=== PATIENT | female | born 1955 | race Caucasian/White ===

== ENCOUNTER 2024-12-28 07:18 | Observation (INO) ==
[2024-12-28] MEDS: LACTATED RINGER'S 1,000 ML IV ONE (07:33)
[2024-12-28] MEDS: MoRPHine SULFATE 4 MG/ML 1 ML CARP\\VIAL IV STA (07:34)
[2024-12-28] MEDS: ONDANSETRON INJ 2 MG/ML 2 ML VIAL IV STA (07:35)
--- NOTE | 2024-12-28 07:37 | Emergency Department Note ---
ED Provider Note NAME: SARKIS JEFFRIES AGE: 69 SEX: F : 1955 ARRIVES VIA: Ambulance INFORMANT: Patient, EMS ED PROVIDER(S): Brandon Rollins DO CHIEF COMPLAINT: fall HPI: This is a []-year-old []male with the PMHx of[] presenting to [facility] for further evaluation of []. Patient is accompanied by[] who provide additional history. []. Patient states overnight she had 1 episode of vomiting. She reports generalized abdominal pain as well as diarrhea. Patient states that she had a syncopal episode when getting up this morning. She fell and landed onto her chest and abdomen. She did not strike her head. She did lose consciousness. Patient is reporting chest pain as well as upper abdominal pain. They deny fever or chills. No cough or congestion. Denies chest pain or palpitations. No shortness of breath. They deny abdominal pain, nausea and vomiting. No urinary complaints. No recent changes in bowel movements. Patient denies recent changes in medications or OTC supplements. Patient offers no other complaints, today. ADDITIONAL HISTORY OBTAINED: Per HPI Chronic Medical/Social Conditions Affecting Care: Per HPI PAST MEDICAL HISTORY: See Below PAST SURGICAL HISTORY: See Below FAMILY HISTORY: See Below SOCIAL HISTORY: See Below HOME MEDICATIONS: See Below ALLERGIES: See Below VITALS: See Below PHYSICAL EXAMINATION: Primary Survey Airway: Intact Breathing: Normal, breath sounds equal bilaterally Circulation: Skin warm, distal pulses 2+, capillary refill less than 2 seconds Disability Pupils: Equal and reactive to light, []mm, brisk GCS: 15, E = [/4], V=[/5], M= [/6] Motor Function: Moves all extremities. Sensory: No deficits Secondary Survey GEN: Well developed and well-nourished HENT: Head: [] external signs of trauma. Mouth/Throat: Midface []. [] malocclusion. Eyes: EOMI. Pupils are [] mm, round and reactive bilaterally. Ears: TMs are intact bilaterally. [] hematomas. Nose: [] nasal septal hematoma. [] gross deformity. Neck: C-collar in place. [] midline C-spine tenderness. No step-offs. Cardiovascular: RRR. Pulses present in all 4 extremities. Pulmonary/Chest: [] BS equal bilaterally. [] tenderness or ecchymosis. Abdomen: [] tenderness or ecchymosis. Musculoskeletal: Pelvis: [] instability. Back: [] midline tenderness. No step-offs or deformities. Extremities: [] gross deformities. [] TTP. Skin: [] laceration. [] abrasion. Neuro: [] focal neurological deficits. GCS as above. Psych: Normal mood and affect. MEDICAL DECISION MAKING: Differential diagnoses includes but not limited to [] In summary, this is a [] year old []male who presented with []. Differential as above. Nursing notes and pertinent past medical records reviewed. Vital signs reviewed and the patient is []. History and presentation revealed []. Physical examination revealed []. As a result of my initial evaluation, []. Diagnostics interpreted by me include EKG and cardiac monitoring as listed below: -Cardiac Monitoring: An order was placed for continuous cardiac monitoring. The monitor shows a rate of [] with [] rhythm. -ECG: Sinus tachycardia at a rate of [address] segment changes to suggest STEMI. There are 2 PVCs present on this rhythm strip. Intervals are otherwise within normal limits. Patient completed laboratory studies and imaging. I-STAT chemistries independently interpreted by me reveal no significant electrolyte derangements. Kidney function is appropriate for CT scan. Results independently interpreted by me are []. The patient was managed with []. The patient verbalized understanding of the treatment plan and they are comfortable with discharge home. Ultimately, the decision was made to admit the patient for []. It was recommended to admit this patient at[]. I discussed the case with the hospitalist service via telephone/TigerText and they are agreeable to admit the patient to their services. Based on the above, including the patient's age, coexisting illnesses, labs, imaging, and exam findings the decision to treat as an inpatient. I discussed the patient with the hospitalist team who recommended admission to their services. They received the medications, treatments, interventions indicated above and their condition []. I discussed my findings with the patient and their family and they understand and agree with the treatment plan. All patient / family questions were answered to their satisfaction. Consults/Care Managements Discussions: Per MDM ER treatment provided: See above Procedures:[none] Critical Care: [None] The chart was completed utilizing [employer] Speech voice recognition software. Grammatical errors, random word insertions, pronoun errors, and incomplete sentences are an occasional consequence of this system due to software limitations, ambient noise, and hardware issues. Any formal questions or concerns about the content, text, or information contained within the body of this dictation should be directly addressed to the physician for clarification. Past Med/Surg History Problem List (Updated 12/28/24 @ 09:29 by Lambert Cleary MD) Rib fractures Hydronephrosis, right (Chronic) Hypokalemia Recurrent nephrolithiasis (Chronic) Calcium Oxalate Chronic bilateral low back pain without sciatica Osteoporosis HTN (hypertension) Medical History Sacroiliitis History of supraventricular tachycardia Osteoarthritis Scoliosis Compression fracture of L1 lumbar vertebra (~2020) Hx of motion sickness Surgical History Status post laser lithotripsy of ureteral calculus History of anesthesia reaction Nausea and vomiting after administration of anesthetic agent History of bilateral tubal ligation History of cystoscopy History of lithotripsy History of colonoscopy History of tooth extraction History of cardiac radiofrequency ablation Family History Grandmother (Maternal) Family history of diabetes mellitus Aunt Breast cancer Mother Alzheimer disease Father Myocardial infarction Denies family history of Ovarian cancer Prostate cancer Colorectal cancer Social History Smoking Status: Never smoker Second Hand Exposure: No; Do You Dip or Chew Tobacco: No; Hx Alcohol Use: No Hx Substance Use: No Preferred Language: Armenian Communication Ability: Effective Visual Impairment: No Limitations Desk Maker Required: No Beliefs That Will Affect Care: None marital status: Current Living Situation: Spouse current occupational status: retired Other Information That Helps Us Care for You: No Feels Safe at Home: Yes Safety Concerns: Feels Safe At This Time Childhood Exposure to Second-Hand Smoke: Yes Diet: regular caffeine: Yes Dental Care, Regularly: Yes Physical Activity Frequency: 3-4 Times per Week Seatbelt Use: always Sunscreen Use: Yes (sometimes) Assistive Devices: Glasses Allergies Allergies Allergy/AdvReac Type Severity Reaction Status Date / Time No Known Allergies Allergy Verified 12/28/24 09:07 Home Meds Home Medications Medication Instructions Recorded Confirmed cholecalciferol (vitamin D3) 10 400 unit PO QAM 05/24/18 12/28/24 mcg (400 unit) capsule (Vitamin D3) flaxseed oil 1,000 mg capsule 1,000 mg PO QAM 05/24/18 12/28/24 multivitamin 1 tab PO QAM 05/24/18 12/28/24 pravastatin 20 mg tablet 20 mg PO QAM 12/28/24 12/28/24 triamterene 37.5 1 tab PO QAM 12/28/24 12/28/24 mg-hydrochlorothiazide 25 mg tablet Previous Rx's Medication Instructions Recorded denosumab 60 mg/mL subcutaneous 60 mg subcut ONCE #1 mL 02/10/24 syringe (Prolia) Results & Data (ED) Vital Signs Vital Signs - 24 hr 12/28/24 06:53 12/28/24 07:25 12/28/24 07:28 Temperature 36.7 C Temperature Source Oral Pulse Rate 108 H 110 H Pulse Rate [Apical] Respiratory Rate 18 Respiratory Effort / Characteristics Non-Labored Spontaneous Respiratory Depth Normal Respiratory Pattern Regular Blood Pressure 125/94 Blood Pressure [Left Arm] Blood Pressure Mean 104 Blood Pressure Mean [Left Arm] Pulse Oximetry 98 98 Oxygen Delivery Method Room Air Room Air Sepsis Recent Fever Within 48 Hours No Sepsis New/Unexplained Change in Mental Status N/A Sepsis Action Taken by Nursing No Action Required 12/28/24 07:53 Temperature Temperature Source Pulse Rate Pulse Rate [Apical] 108 H Respiratory Rate 18 Respiratory Effort / Characteristics Non-Labored Spontaneous Respiratory Depth Normal Respiratory Pattern Regular Blood Pressure Blood Pressure [Left Arm] 119/87 Blood Pressure Mean Blood Pressure Mean [Left Arm] 97 Pulse Oximetry 97 Oxygen Delivery Method Room Air Sepsis Recent Fever Within 48 Hours Sepsis New/Unexplained Change in Mental Status Sepsis Action Taken by Nursing Laboratory Data 12/28/24 07:31 12/28/24 07:31 Lab Results 12/28/24 12/28/24 12/28/24 Range/Units 07:31 07:40 08:23 WBC 13.29 H (4.8-10.8) K/ul RBC 4.45 (4.20-5.40) M/uL Hgb 13.4 (12.0-16.0) g/dl POC Hgb 13.3 (12.0-16.0) g/dl Hct 38.3 (37.0-47.0) % POC Hct 39 (37-47) % MCV 86.1 (80.0-100.0) fL MCH 30.1 (25.0-34.0) pg MCHC 35.0 (32.0-36.0) g/dL RDW Std Deviation 37.0 (36.4-46.3) fL RDW Coeff of Halie 11.7 (11.5-14.5) % Plt Count 220 (130-400) K/uL MPV 10.3 (9.4-12.4) fL Immature Gran % (Auto) 0.4 % Neut % (Auto) 90.2 % Lymph % (Auto) 5.6 % [place] % (Auto) 3.3 % Eos % (Auto) 0.2 % Baso % (Auto) 0.3 % Neut # (Auto) 11.99 H (1.40-6.50) K/uL Lymph # (Auto) 0.75 L (1.20-3.40) K/uL [place] # (Auto) 0.44 (0.11-0.59) K/uL Eos # (Auto) 0.02 (0.00-0.50) K/uL Baso # (Auto) 0.04 (0.00-0.20) K/uL Immature Gran # (Auto) 0.05 (0.01-0.20) K/uL RBC Morphology Unremarkable PT 11.2 (9.0-12.0) Seconds INR 1.1 (0.9-1.1) APTT 21 (21-31) Seconds PTT Ratio 0.8 POC Sodium 140 (135-144) mmol/L Sodium 139 (136-145) mmol/L POC Potassium 3.7 (3.3-5.0) mmol/L Potassium 3.7 (3.5-5.1) mmol/L POC Chloride 102 (101-112) mmol/L Chloride 104 (98-107) mmol/L Carbon Dioxide 27 (21-32) mmol/L POC Total CO2 24 (24-31) mmol/L Anion Gap 8 (3-11) POC Anion Gap 19.0 (16-25) mmol/L POC BUN 22 H (7-18) mg/dl BUN 22 (6-23) mg/dl Creatinine 1.05 (0.6-1.2) mg/dl POC Creatinine 1.1 (0.6-1.3) mg/dl Est Cr Clr Drug Dosing 40.7 ml/min eGFR 56.81 BUN/Creatinine Ratio 21.0 H (10-20) Glucose 118 H (70-99(Fasting)) mg/dl POC Glucose (other) 117 H (70-99) mg/dl Lactate 2.3 H* (0.4-2.0) mmol/L Calcium 8.5 L (8.6-10.3) mg/dl POC Ioniz Calcium Erin 1.07 L (1.12-1.32) mmol/l Magnesium 1.7 (1.7-2.4) mg/dl Total Bilirubin 0.3 (0.2-1.0) mg/dl AST 17 (13-39) U/L ALT 15 (7-52) U/L Alkaline Phosphatase 50 (34-104) U/L Troponin I High Sens 2.3 (0-14) pg/ml Total Protein 6.7 (6.0-8.3) gm/dl Albumin 4.3 (3.4-5.0) gm/dl Globulin 2.4 L (2.5-4.0) gm/dl Albumin/Globulin Ratio 1.8 (0.9-2) Lipase 37 (11-82) U/L Urine Color Yellow Urine Appearance Clear (Clear) Urine pH 6.0 (4.5-7.5) Ur Specific [place] 1.019 (1.000-1.030) Urine Protein Negative (Negative) Urine Glucose (UA) Negative (Negative) Urine Ketones Negative (Negative) Urine Blood Negative (Negative) Urine Nitrite Negative (Negative) Urine Bilirubin Negative (Negative) Urine Urobilinogen Negative (Negative) Ur Leukocyte Esterase Negative (Negative) Urine Comment Administered Medications Acetaminophen (Acetaminophen 500 Mg Tab) 1,000 mg PO TID [place] Stop: 01/27/25 13:59 Last Admin: 12/28/24 14:22 Dose: 1,000 mg Documented By: kristin Co-signed By: MADELIN Lactated Ringer's (Lr) 1,000 mls @ 80 mls/hr IV .[id number] [place] Stop: 12/28/24 23:29 Last Admin: 12/28/24 11:06 Dose: 80 mls/hr Documented By: MADELIN Morphine Sulfate (Morphine Sulfate 4 Mg/Ml 1 Ml Carp\Vial) 4 mg IV Q4H PRN PRN Reason: Severe Pain (Scale 7, 8, 9,10) Stop: 01/11/25 10:45 Last Admin: 12/28/24 15:52 Dose: 4 mg Documented By: Admin: 12/28/24 11:38 Dose: 4 mg Documented By: MADELIN Discontinued Medications Lactated Ringer's (Lr) 1,000 mls @ 999 mls/hr IV .Q1H1M ONE Stop: 12/28/24 08:26 Last Infusion: 12/28/24 08:34 Dose: Infused Documented By: Admin: 12/28/24 07:33 Dose: 999 mls/hr Documented By: ELLA Magnesium Sulfate/Dextrose (Magnesium Sulfate / D5w) 1 gm in 100 mls @ 100 mls/hr IV NOW STA Stop: 12/28/24 09:15 Last Infusion: 12/28/24 09:28 Dose: Infused Documented By: Admin: 12/28/24 08:28 Dose: 100 mls/hr Documented By: ELLA Ioversol (Optiray 320 100ml) 94 ml IV ONCE ONE Stop: 12/28/24 07:56 Last Admin: 12/28/24 07:56 Dose: 94 ml Documented By: JANET Lidocaine (Lidocaine 5% 1 Patch) 1 patch TD NOW STA Stop: 12/28/24 09:05 Last Admin: 12/28/24 09:50 Dose: 1 patch Documented By: ELLA Morphine Sulfate (Morphine Sulfate 4 Mg/Ml 1 Ml Carp\Vial) 4 mg IV NOW STA Stop: 12/28/24 07:26 Last Admin: 12/28/24 07:34 Dose: 4 mg Documented By: ELLA Ondansetron HCl (Ondansetron Inj 2 Mg/Ml 2 Ml Vial) 4 mg IV NOW STA Stop: 12/28/24 07:26 Last Admin: 12/28/24 07:35 Dose: 4 mg Documented By: [facility] Imaging Data Radiologist's Impression: Abdomen/Pelvis CT 12/28/24 07:25 CT SCAN OF THE ABDOMEN AND PELVIS WITH IV CONTRAST CLINICAL HISTORY: Trauma. COMPARISON STUDY: Renal ultrasound October 05, 2024. CT of the abdomen and pelvis July 21, 2023. TECHNIQUE: Following the IV administration of 94 cc of Optiray 320, CT scan of the abdomen and pelvis is performed from the lung bases to the proximal femora. Images are reviewed in the axial, sagittal, and coronal planes. IV contrast was administered without complication. A dose lowering technique was utilized adhering to the principles of ALARA. FINDINGS: Please note that the chest CT will be reported separately. Acute nondisplaced fractures of the anterior right fifth, sixth and seventh ribs are better depicted on that exam. No hemoperitoneum or pneumoperitoneum is present. There is no evidence for traumatic injury to the liver, spleen, adrenal glands, kidneys or pancreas. There is moderate right proptosis. Right collecting system dilatation is shown on CT of July 21, 2023. This has slightly increased in degree. There is no left hydronephrosis. Note is made of an elongated 1.1 cm nodular density along the anterior aspect of the right ureteropelvic junction on image 162 of 377. There are no urinary calculi. Caliber and wall thickness of small and large bowel are normal. The appendix is normal. There is colonic diverticulosis without evidence for acute diverticulitis. No acute lumbar spine, pelvic or hip fractures are present. Old mild compression deformities of the superior endplates of T11 and L1 are unchanged. IMPRESSION: 1. Acute nondisplaced anterior right fifth, sixth and seventh rib fractures. 2. No acute traumatic findings within the abdomen or pelvis. 3. Moderate right hydronephrosis, mildly increased in degree since prior CT although likely not acute. No urinary calculi. 1.1 cm nodular density along anterior aspect of the right ureteropelvic junction which is nonspecific but could represent an old tiny fluid collection or scarring. The findings are indeterminate and could be assessed with a follow-up hematuria protocol CT in 3 months. ACT 112: Negative or not required by law. Electronically signed by: Rodger Mcdaniel M.D. 12/28/2024 8:[address] 12/28/24 07:25 CT SCAN OF THE CHEST WITH IV CONTRAST CLINICAL HISTORY: Trauma. COMPARISON STUDY: Chest x-ray dated 12/28/2024. TECHNIQUE: Following the IV administration of 94 cc of Optiray 320, CT scan of the thorax was performed from the thoracic inlet to the upper abdomen. Images are reviewed in the axial, sagittal, and coronal planes. IV contrast was administered without complication. A dose lowering technique was utilized adhering to the principles of ALARA. CT DOSE: 928.54 mGy.cm FINDINGS: Thyroid: Imaged portions of the thyroid gland are normal in size and attenuation. Thoracic aorta: There is mild atherosclerotic calcification of the thoracic aorta, which is normal in caliber and demonstrates bovine variant arch anatomy. No dissection is seen. Pulmonary vasculature: The pulmonary trunk is normal in caliber. There are no filling defects identified in the central pulmonary vessels to indicate pulmonary embolus. Note that this examination was not protocoled for evaluation of the pulmonary arteries. Heart: The heart is normal in size and without pericardial effusion. There is coronary artery atherosclerosis. Lungs and pleural spaces: There is no airspace consolidation, pleural effusion, or pneumothorax. The trachea and central airways are clear. Mild bronchiectasis is seen throughout. There is bibasilar scarring/atelectasis. Pleural parenchymal change is noted at the apices. There are scattered (less than 10)) patient to 3 mm pulmonary nodules scattered throughout both lungs. Pharmacy Customer Care Specialist nodules are seen in the right upper lobe on image #69, the right lower lobe on images #100 and #107, and the left lower lobe on images #124 and #154. Mediastinum: There is no mediastinal hematoma or lymphadenopathy. Natacha: Clear. Axillae: There is no axillary lymphadenopathy. Upper abdomen: There is a small hiatal hernia. Partially visualized upper abdominal viscera is otherwise within normal limits. Skeletal structures: The skeletal structures are osteopenic. There are acute nondisplaced fractures of the right anterior 5th through 7th ribs. The remainder bony thorax appears intact. No lytic or blastic bony lesions are seen. IMPRESSION: 1. Acute nondisplaced right anterior rib fractures as above. 2. There is no airspace consolidation, pleural effusion, or pneumothorax. 3. Scattered low suspicion pulmonary nodules measure up to 2 to 3 mm. If warranted these can be followed as per Fleischner criteria below. 4. Coronary artery atherosclerosis. 5. Additional findings as above. Please refer to below summary of Fleischner criteria recommendations for follow- up of incidental CT nodules (Urbano Gauthier, Guidelines for management of small pulmonary nodules detected on CT scans: A statement from the Fleischner Society, Radiology 237: [phone].) SOLID NODULES Solitary nodule size: <6 mm * low risk patients: no follow-up needed * high risk patients: optional CT at 12 months Solitary nodule size: 6-8 mm * low risk patients: follow-up at 6-12 months, then consider further follow-up at 18-24 months * high risk patients: initial follow-up CT at 6-12 months and then at 18-24 months if no change Solitary nodule size: >8 mm * either low or high risk patients - consider follow-up CT at 3 months, and/or CT-PET, and/or biopsy Multiple nodules size: <6 mm * low risk patients: no routine follow-up * high risk patients: optional CT at 12 months Multiple nodules size: 6-8 mm * low risk patients: follow-up at 3-6 months, then consider further follow-up at 18-24 months * high risk patients: follow-up at 3-6 months, then at 18-24 months if no change Multiple nodules size: >8 mm * low risk patients: follow-up at 3-6 months, then consider further follow-up at 18-24 months * high risk patients: follow-up at 3-6 months, then at 18-24 months if no change Note: newly detected indeterminate nodule in persons 35 years of age or older. * low risk patients: minimal or absent history of smoking and/or other known risk factors * high risk patients: history of smoking or of other known risk factors (e.g. first degree relative with lung cancer, or exposure to asbestos, radon, uranium) * if a nodule up to 8 mm is partly solid or is ground glass further follow-up is required after 24 months to exclude possible slow growing adenocarcinoma (MADELEINE) SUBSOLID NODULES Solitary pure ground-glass nodule * nodule size <6 mm - no CT follow-up required * nodule size >=6 mm - follow-up CT at 6-12 months, then every 2 years until 5 years Solitary part-solid nodule * nodule size <6 mm - no CT follow-up required * nodule size >=6 mm - follow-up CT at 3-6 months. If unchanged, and solid component remains <6 mm, then annual follow-up for 5 years Multiple subsolid nodules * nodule size <6 mm - follow-up CT at 3-6 months, consider further follow-up at 2 and 4 years if stable * nodule size >=6 mm - follow-up CT at 3-6 months, subsequent management based on the most suspicious nodule(s) ACT 112: Negative or not required by law. Electronically signed by: Qasim Sunshine M.D. 12/28/2024 8:29 AM Chest X-Ray 12/28/24 07:25 EXAM: XR chest 1V portable CLINICAL HISTORY: Trauma. TECHNIQUE: An X-ray image of the chest was obtained in the AP projection. COMPARISON: Prior chest X-ray dated 07/14/2023. FINDINGS: Pulmonary Parenchyma: The lungs are clear bilaterally. There is no evidence of consolidation, collapse, or focal opacities. No pulmonary nodules are identified. There is no evidence of pleural effusion or pleural thickening. Heart and Mediastinum: The heart size and shape are normal. There is no mediastinal widening or masses. No hilar or mediastinal lymphadenopathy is seen. Atheromatous calcifications of the aorta are unchanged. Bony Thorax: The bony thorax appears intact without fractures or deformities. Degenerative changes of the scanned spine are unchanged. Soft Tissues: The soft tissues overlying the chest wall are unremarkable. EKG leads are projected over the chest wall. IMPRESSION: No acute cardiopulmonary abnormalities are identified. Stable. Electronically signed by Daryn Hobbs 12-28-2024 08:24 AM Discharge Plan Visit Data Chief Complaint: Syncope ED Provider: Brandon Rollins Patient Disposition: Admitted As Inpatient Discharge Instructions Interventions: ED Discharge Assessment Last Done: 12/28/24 09:53
[2024-12-28 07:51] LABS: Hematocrit (blood only) 38.3 % (37.0-47.0); Hemoglobin 13.4 g/dl (12.0-16.0); Mean Corpuscular Hemoglobin 30.1 pg (25.0-34.0); Mean Corpuscular Volume 86.1 fL (80.0-100.0); Platelet Count 220 K/uL (130-400); RDW Standard Deviation 37.0 fL (36.4-46.3); Red Blood Count 4.45 M/uL (4.20-5.40); White Blood Count 13.29 K/ul (4.8-10.8)
[2024-12-28] MEDS: OPTIRAY 320 100ml IV ONE (07:56)
[2024-12-28 08:09] LABS: Alanine Aminotransferase 15.0 U/L (7-52); Albumin Globulin Ratio 1.8 (0.9-2); Albumin Level 4.3 gm/dl (3.4-5.0); Alkaline Phosphatase 50.0 U/L (34-104); Anion Gap 8.0 (3-11); Bilirubin,Total 0.3 mg/dl (0.2-1.0); Blood Urea Nitrogen 22.0 mg/dl (6-23); Calcium 8.5 mg/dl (8.6-10.3); Carbon Dioxide 27.0 mmol/L (21-32); Chloride 104.0 mmol/L (98-107); Creatinine Clr Calc Pharmacy 40.7 ml/min; Globulin 2.4 gm/dl (2.5-4.0); Glucose 118.0 mg/dl (70-99(Fasting)); Lipase 37.0 U/L (11-82); Magnesium 1.7 mg/dl (1.7-2.4); Potassium 3.7 mmol/L (3.5-5.1); Sodium 139.0 mmol/L (136-145); Total Protein 6.7 gm/dl (6.0-8.3)
[2024-12-28 08:20] LABS: INR 1.1 (0.9-1.1); Partial Thromboplastin Time 21 Seconds (21-31); Prothrombin Time 11.2 Seconds (9.0-12.0)
--- NOTE | 2024-12-28 08:24 | XRay Report ---
EXAM: XR chest 1V portable CLINICAL HISTORY: Trauma. TECHNIQUE: An X-ray image of the chest was obtained in the AP projection. COMPARISON: Prior chest X-ray dated 07/14/2023. FINDINGS: Pulmonary Parenchyma: The lungs are clear bilaterally. There is no evidence of consolidation, collapse, or focal opacities. No pulmonary nodules are identified. There is no evidence of pleural effusion or pleural thickening. Heart and Mediastinum: The heart size and shape are normal. There is no mediastinal widening or masses. No hilar or mediastinal lymphadenopathy is seen. Atheromatous calcifications of the aorta are unchanged. Bony Thorax: The bony thorax appears intact without fractures or deformities. Degenerative changes of the scanned spine are unchanged. Soft Tissues: The soft tissues overlying the chest wall are unremarkable. EKG leads are projected over the chest wall. IMPRESSION: No acute cardiopulmonary abnormalities are identified. Stable. Electronically signed by Daryn Hobbs 12-28-2024 08:24 AM
--- NOTE | 2024-12-28 08:24 | CT Scan Report ---
CT SCAN OF THE ABDOMEN AND PELVIS WITH IV CONTRAST CLINICAL HISTORY: Trauma. COMPARISON STUDY: Renal ultrasound October 05, 2024. CT of the abdomen and pelvis July 21, 2023. TECHNIQUE: Following the IV administration of 94 cc of Optiray 320, CT scan of the abdomen and pelvi s is performed from the lung bases to the proximal femora. Images are reviewed in the axial, sagittal , and coronal planes. IV contrast was administered without complication. A dose lowering technique wa s utilized adhering to the principles of ALARA. FINDINGS: Please note that the chest CT will be reported separately. Acute nondisplaced fractures of the anterior right fifth, sixth and seventh ribs are better depicted on that exam. No hemoperitoneum or pneumoperitoneum is present. There is no evidence for traumatic injury to the liver, spleen, adren al glands, kidneys or pancreas. There is moderate right proptosis. Right collecting system dilatation is shown on CT of July 21, 2023. This has slightly increased in degree. There is no left hydronephrosi s. Note is made of an elongated 1.1 cm nodular density along the anterior aspect of the right uretero pelvic junction on image 162 of 377. There are no urinary calculi. Caliber and wall thickness of smal l and large bowel are normal. The appendix is normal. There is colonic diverticulosis without evidenc e for acute diverticulitis. No acute lumbar spine, pelvic or hip fractures are present. Old mild comp ression deformities of the superior endplates of T11 and L1 are unchanged. IMPRESSION: 1. Acute nondisplaced anterior right fifth, sixth and seventh rib fractures. 2. No acute traumatic findings within the abdomen or pelvis. 3. Moderate right hydronephrosis, mildly increased in degree since prior CT although likely not acute . No urinary calculi. 1.1 cm nodular density along anterior aspect of the right ureteropelvic junctio n which is nonspecific but could represent an old tiny fluid collection or scarring. The findings are indeterminate and could be assessed with a follow-up hematuria protocol CT in 3 months. ACT 112: Negative or not required by law. Electronically signed by: Rodger Mcdaniel M.D. 12/28/2024 8:22 AM
[2024-12-28] MEDS: MAGNESIUM SULFATE / D5W 1 GM/100 ML BAG IV STA (08:28)
--- NOTE | 2024-12-28 08:31 | CT Scan Report ---
CT SCAN OF THE CHEST WITH IV CONTRAST CLINICAL HISTORY: Trauma. COMPARISON STUDY: Chest x-ray dated 12/28/2024. TECHNIQUE: Following the IV administration of 94 cc of Optiray 320, CT scan of the thorax was perform ed from the thoracic inlet to the upper abdomen. Images are reviewed in the axial, sagittal, and matt nal planes. IV contrast was administered without complication. A dose lowering technique was utilize d adhering to the principles of ALARA. CT DOSE: 928.54 mGy.cm FINDINGS: Thyroid: Imaged portions of the thyroid gland are normal in size and attenuation. Thoracic aorta: There is mild atherosclerotic calcification of the thoracic aorta, which is normal in caliber and demonstrates bovine variant arch anatomy. No dissection is seen. Pulmonary vasculature: The pulmonary trunk is normal in caliber. There are no filling defects identif ied in the central pulmonary vessels to indicate pulmonary embolus. Note that this examination was no t protocoled for evaluation of the pulmonary arteries. Heart: The heart is normal in size and without pericardial effusion. There is coronary artery atheros clerosis. Lungs and pleural spaces: There is no airspace consolidation, pleural effusion, or pneumothorax. The trachea and central airways are clear. Mild bronchiectasis is seen throughout. There is bibasilar sca rring/atelectasis. Pleural parenchymal change is noted at the apices. There are scattered (less than 10)) patient to 3 mm pulmonary nodules scattered throughout both lungs. Hand Bookbinder nodules are se en in the right upper lobe on image #69, the right lower lobe on images #100 and #107, and the left l ower lobe on images #124 and #154. Mediastinum: There is no mediastinal hematoma or lymphadenopathy. Natacha: Clear. Axillae: There is no axillary lymphadenopathy. Upper abdomen: There is a small hiatal hernia. Partially visualized upper abdominal viscera is otherw ise within normal limits. Skeletal structures: The skeletal structures are osteopenic. There are acute nondisplaced fractures o f the right anterior 5th through 7th ribs. The remainder bony thorax appears intact. No lytic or nivia tic bony lesions are seen. IMPRESSION: 1. Acute nondisplaced right anterior rib fractures as above. 2. There is no airspace consolidation, pleural effusion, or pneumothorax. 3. Scattered low suspicion pulmonary nodules measure up to 2 to 3 mm. If warranted these can be follo wed as per Fleischner criteria below. 4. Coronary artery atherosclerosis. 5. Additional findings as above. Please refer to below summary of Fleischner criteria recommendations for follow-up of incidental CT n odules (Urbano Gauthier, Guidelines for management of small pulmonary nodules detected on CT scans: A marcell cancino from the Fleischner Society, Radiology 237: [phone].) SOLID NODULES Solitary nodule size: <6 mm * low risk patients: no follow-up needed * high risk patients: optional CT at 12 months Solitary nodule size: 6-8 mm * low risk patients: follow-up at 6-12 months, then consider further follow-up at 18-24 months * high risk patients: initial follow-up CT at 6-12 months and then at 18-24 months if no change Solitary nodule size: >8 mm * either low or high risk patients - consider follow-up CT at 3 months, and/or CT-PET, and/or biopsy Multiple nodules size: <6 mm * low risk patients: no routine follow-up * high risk patients: optional CT at 12 months Multiple nodules size: 6-8 mm * low risk patients: follow-up at 3-6 months, then consider further follow-up at 18-24 months * high risk patients: follow-up at 3-6 months, then at 18-24 months if no change Multiple nodules size: >8 mm * low risk patients: follow-up at 3-6 months, then consider further follow-up at 18-24 months * high risk patients: follow-up at 3-6 months, then at 18-24 months if no change Note: newly detected indeterminate nodule in persons 35 years of age or older. * low risk patients: minimal or absent history of smoking and/or other known risk factors * high risk patients: history of smoking or of other known risk factors (e.g. first degree relative with lung cancer, or exposure to asbestos, radon, uranium) * if a nodule up to 8 mm is partly solid or is ground glass further follow-up is required after 24 m onths to exclude possible slow growing adenocarcinoma (MADELEINE) SUBSOLID NODULES Solitary pure ground-glass nodule * nodule size <6 mm - no CT follow-up required * nodule size >=6 mm - follow-up CT at 6-12 months, then every 2 years until 5 years Solitary part-solid nodule * nodule size <6 mm - no CT follow-up required * nodule size >=6 mm - follow-up CT at 3-6 months. If unchanged, and solid component remains <6 mm, then annual follow-up for 5 years Multiple subsolid nodules * nodule size <6 mm - follow-up CT at 3-6 months, consider further follow-up at 2 and 4 years if sta ble * nodule size >=6 mm - follow-up CT at 3-6 months, subsequent management based on the most suspiciou s nodule(s) ACT 112: Negative or not required by law. Electronically signed by: Qasim Sunshine M.D. 12/28/2024 8:29 AM
[2024-12-28 08:33] LABS: Immature Granulocytes # (auto) 0.05 K/uL (0.01-0.20); Immature Granulocytes % (auto) 0.4 %; RBC Morphology Unremarkable
[2024-12-28 08:59] LABS: Appearance Urine Clear (Clear); Glucose Urine UA Negative (Negative)
--- NOTE | 2024-12-28 09:31 | History & Physical Report ---
Date of Service December 28, 2024 Assessment & Plan (1) Rib fractures: (2) HTN (hypertension): Plan 69-year-old female with nausea vomit diarrhea who became presyncopal fell and fractured her ribs. No evidence of pneumothorax at this time. Pain control is required due to splinting. Incidentally noted pulmonary nodules and right UVJ ureteral changes seen. Patient previous patient had a significant ureteral issue in 2023 followed by urology #Rib fractures patient will be placed on telemetry patient will have incentive spirometry. Pain control with parenteral morphine and oral tramadol with backup Tylenol and a lidocaine patch. #Hypertension. Patient is on thiazide diuretic which is likely part of her presyncopal episode. With nausea from diarrhea she is mildly dehydrated with elevated lactic acid on presentation. She will be hydrated lactated Ringer's. Likely will make a decision on continuing her Dyazide at the time of discharge but another agent may be more beneficial for hypertensive control for her #Pulmonary nodules recommend follow-up in 3 to [address] scan #Ureteral abnormality. Likely follow-up urology postdischarge Given a trauma admission patient will not have chemoprophylaxis for DVT prevention will have SCDs History of Present Illness Primary Care Provider: Samreen Cortes MD 69-year-old female is relatively healthy developed nausea vomiting diarrhea over the last day or so. Patient does take a diuretic for blood pressure control. Patient became lightheaded and fell striking her right ribs on a vanity in her bathroom. She presented to the ER by EMS for the presyncopal episode. She is found to have 3 contiguous rib fractures on the right. She has some pain and splinting. No other areas of injury were seen on CT scan of chest abdomen pelvis. This is recommended for observation for her 3 contiguous rib fractures. Incidentally noted low suspicion pulmonary nodules are seen that are 2 to 3 mm consideration follow-up in the future with repeat CT scan Also once again seen is ureteral abnormality which has been chronic for the patient with CT abdomen pelvis Allergies Allergy/AdvReac Type Severity Reaction Status Date / Time No Known Allergies Allergy Verified 12/28/24 09:07 Home Medications Medication Instructions Recorded Confirmed Type cholecalciferol (vitamin D3) 10 400 unit PO QAM 05/24/18 12/28/24 History mcg (400 unit) capsule (Vitamin D3) flaxseed oil 1,000 mg capsule 1,000 mg PO QAM 05/24/18 12/28/24 History multivitamin 1 tab PO QAM 05/24/18 12/28/24 History denosumab 60 mg/mL subcutaneous 60 mg subcut ONCE #1 mL 02/10/24 12/28/24 Rx syringe (Prolia) pravastatin 20 mg tablet 20 mg PO QAM 12/28/24 12/28/24 History triamterene 37.5 1 tab PO QAM 12/28/24 12/28/24 History mg-hydrochlorothiazide 25 mg tablet Past Med/Surg History Problem List (Updated 12/28/24 @ 09:29 by Lambert Cleary MD) Rib fractures Hydronephrosis, right (Chronic) Hypokalemia Recurrent nephrolithiasis (Chronic) Calcium Oxalate Chronic bilateral low back pain without sciatica Osteoporosis HTN (hypertension) Medical History Sacroiliitis History of supraventricular tachycardia Osteoarthritis Scoliosis Compression fracture of L1 lumbar vertebra (~2020) Hx of motion sickness Surgical History Status post laser lithotripsy of ureteral calculus History of anesthesia reaction Nausea and vomiting after administration of anesthetic agent History of bilateral tubal ligation History of cystoscopy History of lithotripsy History of colonoscopy History of tooth extraction History of cardiac radiofrequency ablation Family History Grandmother (Maternal) Family history of diabetes mellitus Aunt Breast cancer Mother Alzheimer disease Father Myocardial infarction Denies family history of Ovarian cancer Prostate cancer Colorectal cancer Social History Smoking Status: Never smoker Second Hand Exposure: No; Do You Dip or Chew Tobacco: No; Hx Alcohol Use: No Hx Substance Use: No Preferred Language: Norwegian Communication Ability: Effective Visual Impairment: No Limitations Occupational Health Technician Required: No Beliefs That Will Affect Care: None marital status: Current Living Situation: Spouse current occupational status: retired Other Information That Helps Us Care for You: No Feels Safe at Home: Yes Safety Concerns: Feels Safe At This Time Childhood Exposure to Second-Hand Smoke: Yes Diet: regular caffeine: Yes Dental Care, Regularly: Yes Physical Activity Frequency: 3-4 Times per Week Seatbelt Use: always Sunscreen Use: Yes (sometimes) Assistive Devices: Glasses Review of Systems Review of Systems: Mild distress and fatigue no other evidence of injury from her pre syncopal event no headache, no visual changes no speech or swallowing issues Right lower quadrant chest pain just below her breast no shortness of breath, cough or wheezes Abdominal pain in the right upper quadrant area where she struck her torso on her vanity, did awaken with nausea vomiting and diarrhea and since resolved no dysuria, hematuria or frequency no focal joint pain or swelling no back pain, CVA tenderness or radicular pain no bruising, bleeding or rashes no focal signs of weakness or numbness or altered sensation no complaints of anxiety or depression.. Physical Exam Physical Exam: The patient appeared well nourished and normally developed. Vital signs as documented. Head exam is normocephalic atraumatic Neck is without JVD, thyromegaly, or carotid bruits. Lungs are clear to auscultation, no focal loss of breath sounds Cardiac exam, Rhythm is regular.. No murmurs, rubs or gallops. Abdominal exam reveals normal bowel sounds, soft tender over the right lower rib cage Extremities are nonedematous and both pedal pulses are present Neurologic exam is alert and oriented, no focal loss of strength or sensation Skin is without bruises or rashes Psychologically is without concerns for anxiety or depression.. Results & Data Results & Data Vital Signs (Past 12 Hours) Vital Signs Temp Pulse Pulse Resp BP BP Pulse Ox 12/28/24 07:53 108 H 18 119/87 97 12/28/24 07:28 110 H 12/28/24 07:25 98 12/28/24 06:53 98.1 F 108 H 18 125/94 98 O2 Del Method 12/28/24 07:53 Room Air 12/28/24 07:28 12/28/24 07:25 Room Air 12/28/24 06:53 Room Air Laboratory Results Reviewed imaging studies of CT chest, CT abdomen pelvis, plain chest x-ray, EKG Reviewed laboratories including CBC and chemistry panel Code Status & VTE Plan VTE Prophylaxis Plan VTE Prophylaxis will be ordered: Yes PG Care Time/CCT Total # of Minutes Spent Total Time Spent with Patient: Total time spent is greater than 50% in coordination of care (as documented) at patient's floor/unit and/or counseling patient: Coding Level of Care Code 48373 INT INP/OBS CARE MIN Diagnoses Rib fractures S22.49XA HTN (hypertension) I10
[2024-12-28] MEDS: LIDOCAINE 5% 1 PATCH TD STA (09:50)
[2024-12-28] MEDS ORDERED: MoRPHine SULFATE 2 MG/ML CARP IV PRN (10:46)
[2024-12-28] MEDS ORDERED: ONDANSETRON INJ 2 MG/ML 2 ML VIAL IV PRN (10:46)
[2024-12-28] MEDS: LACTATED RINGER'S 1,000 ML IV SCH (11:06)
[2024-12-28] MEDS: MoRPHine SULFATE 4 MG/ML 1 ML CARP\\VIAL IV PRN (11:38)
[2024-12-28] MEDS: ACETAMINOPHEN 500 MG TAB PO SCH (14:22)
[2024-12-28] MEDS: REMOVE LIDODERM PATCH SCH (20:02)
[2024-12-28] MEDS ORDERED: REMOVE LIDODERM PATCH SCH (21:00)
[2024-12-28 23:41] VITALS: RESP 18
[2024-12-29 06:24] LABS: Hematocrit (blood only) 37.9 % (37.0-47.0); Hemoglobin 12.7 g/dl (12.0-16.0); Mean Corpuscular Hemoglobin 29.3 pg (25.0-34.0); Mean Corpuscular Volume 87.5 fL (80.0-100.0); Platelet Count 204 K/uL (130-400); RDW Standard Deviation 38.5 fL (36.4-46.3); Red Blood Count 4.33 M/uL (4.20-5.40); White Blood Count 6.78 K/ul (4.8-10.8)
[2024-12-29 06:40] LABS: Alanine Aminotransferase 14.0 U/L (7-52); Albumin Globulin Ratio 1.3 (0.9-2); Albumin Level 3.7 gm/dl (3.4-5.0); Alkaline Phosphatase 46.0 U/L (34-104); Anion Gap 7.0 (3-11); Bilirubin,Total 0.4 mg/dl (0.2-1.0); Blood Urea Nitrogen 13.0 mg/dl (6-23); Calcium 8.7 mg/dl (8.6-10.3); Carbon Dioxide 29.0 mmol/L (21-32); Chloride 105.0 mmol/L (98-107); Creatinine Clr Calc Pharmacy 49.6 ml/min; Globulin 2.9 gm/dl (2.5-4.0); Glucose 91.0 mg/dl (70-99(Fasting)); Potassium 3.5 mmol/L (3.5-5.1); Sodium 141.0 mmol/L (136-145); Total Protein 6.6 gm/dl (6.0-8.3)
[2024-12-29 07:19] VITALS: O2SAT 97
[2024-12-29] MEDS: LIDOCAINE 5% 1 PATCH TD SCH (08:57)
--- NOTE | 2024-12-29 09:37 | XRay Report ---
XR chest 1V portable CLINICAL HISTORY: follow up rib fractures COMPARISON STUDY: 12/28/2024 FINDINGS: Heart size and pulmonary vasculature are normal. Inspiration is shallow. There is interval stranding opacity in the lung bases. No other consolidation or pleural effusion seen. No pneumothorax . Right rib fractures remain nondisplaced. IMPRESSION: Interval lung base atelectasis. No pneumothorax seen. ACT 112: Negative or not required by law. Electronically signed by: Nagi Haile M.D. 12/29/2024 9:36 AM
--- NOTE | 2024-12-29 10:45 | Discharge Summary ---
Discharge Summary Date of Service December 29, 2024 Principal Dx & Hospital Course #1 = Principal Diagnosis (1) Rib fractures: (2) HTN (hypertension): Plan 69-year-old female with nausea vomit diarrhea who became presyncopal fell and fractured her ribs. No evidence of pneumothorax at this time. Pain control is required due to splinting. Incidentally noted pulmonary nodules and right UVJ ureteral changes seen. Patient previous patient had a significant ureteral issue in 2023 followed by urology Three contiguous rib fractures - doing well, taking acetaminophen no opioids since yesterday, no hypoxia, CXR without PTX today -continue IS, mobility -APAP and tramadol prn pain, lidoderm Vasovagal syncope -mcdonough is to prevent nocturnal diarrhea episodes -did have recent irregular heart beat so made referral for ambulatory residential monitor, cardiology referral -tele unremarkable excepting occasional PVC, EKG with PVC and nonspecific lateral ST changes -hold diuretic resume as outpatient if/when episodes resolve. Was dehydrated with mildly elevated lactate on presentation. Nighttime diarrhea and nausea - probable lactose intolerance. Recently has been eating ice cream bars at bedtime. Usually eats dinner around 2pm -eliminate ice cream at bedtime, reduce dairy intake -hold flaxseed oil There were some tiny pulmonary nodules (2-3 mm) on your chest CT - these are low risk but its recommended to have repeat chest CT in 3-6 months -this can be arranged in primary care R UVJ / mild R hydro has been followed by urology. Renal function remains stable. #Rib fractures patient will be placed on telemetry patient will have incentive spirometry. Pain control with parenteral morphine and oral tramadol with backup Tylenol and a lidocaine patch. #Hypertension. Hold thiazide diuretic as above #Pulmonary nodules recommend follow-up in 3 [address] scan #Ureteral abnormality. Likely follow-up urology postdischarge Given a trauma admission patient will not have chemoprophylaxis for DVT prev ention will have SCDs Notes For Next Care Provider vasovagal syncope and rib fractures form fall -lactose intolerance may be provoking nocturnal diarrhea (eating ice cream at bedtime) and vasovagal episodes -ambulatory residential monitor -diuretic held pulm nodules - chest CT 3-6mo Admission HPI Per Admitting Provider 69-year-old female is relatively healthy developed nausea vomiting diarrhea over the last day or so. Patient does take a diuretic for blood pressure control. Patient became lightheaded and fell striking her right ribs on a vanity in her bathroom. She presented to the ER by EMS for the presyncopal episode. She is found to have 3 contiguous rib fractures on the right. She has some pain and splinting. No other areas of injury were seen on CT scan of chest abdomen pelvis. This is recommended for observation for her 3 contiguous rib fractures. Incidentally noted low suspicion pulmonary nodules are seen that are 2 to 3 mm consideration follow-up in the future with repeat CT scan Also once again seen is ureteral abnormality which has been chronic for the patient with CT abdomen pelvis Discharge Exam Last 24h vitals reviewed GEN: no acute distress, sitting in bed HEENT: pupils equal, sclerae anicteric, moist MM RESP: normal WOB, CTAB CV: reg no mrg ABD: soft/nt/nd +BT : no nava SKIN: warm and dry, no generalized rashes NEURO: AOx person, place, and situation. Face symmetric, speech normal, moves 4 ext spontaneously and equally Discharge Plan Discharge Items Patient Disposition: Home - Self-Care Reason For Visit: 3 RIB FRACTURES Discharge Diagnosis: rib fractures, vasovagal syncope Activity: Per Instructions section Non-emergency contact: Primary Care Provider Call non-emergency contact if: you have any medication questions and your symptoms worsen Follow-up/Referrals: Samreen Cortes MD [Primary Care Provider] - 01/05/25 10:00 am (Hospital follow up on Friday, January 05 at 10 am with Ann-Marie Dunham.) Diet: Regular Addtl Attending Provider Instructions: You had a syncopal (passing out) episode which caused you to fall and fracture three ribs. -continue lidocaine patch (available over the counter), acetaminophen [id number], and tramadol as needed to keep rib pain under control -keep using the incentive spirometer regularly for at least 2-3 more days, being up and walking around also helps keep your right lung healthy -your chest x-ray is okay today -seek immediate medical attention if you have worsening shortness of breath or chest pain By your description its highly likely that your syncopal episodes are a vasovagal reaction - these are commonly triggered by GI symptoms like nausea or onset of diarrhea I think you might be partially lactose intolerant -we will hold your triamterene-HCTZ for the time being to prevent dehydration - call your doctor if your BP is running too high - over 150/90, for example -avoid ice cream or other dairy at night -reduce your overall dairy intake, consider changing to lactose free milk and/or lactose free yogurt -flaxseed oil (and fish oil, omega-3 supplements etc) can also cause diarrhea - you may want to hold this until GI issues sorted out -ask your to get up with you if you have to use the restroom in the night -we are setting up an ambulatory heart monitor to check for arrhythmia, which is another possible cause of syncope There were some tiny pulmonary nodules (2-3 mm) on your chest CT - these are low risk but its recommended to have repeat chest CT in 3-6 months -this can be arranged in primary care It was a pleasure seeing you in the hospital, Olive Mckeon MD Pending Studies at Discharge: No Stand-Alone Forms: My [facility], Smoking Cessation Medications and DC Order Prescriptions: New acetaminophen [Tylenol Extra Strength] 500 mg Tablet 1,000 mg PO TID Qty: 0 0RF lidocaine 5 % Adhesive Patch,Medicated 1 patch transdermal QAM Qty: 0 0RF Rx Instructions: 4% patches available OTC tramadol 50 mg tablet 50 mg PO Q4H PRN (Reason: pain) Qty: 20 0RF Continued Prolia 60 mg/mL syringe 60 mg subcut ONCE Qty: 1 1RF Rx Instructions: [id number] multivitamin Tablet 1 tab PO QAM cholecalciferol (vitamin D3) [Vitamin D3] 400 unit Capsule 400 unit PO QAM pravastatin 20 mg tablet 20 mg PO QAM Held flaxseed oil 1,000 mg Capsule 1,000 mg PO QAM Hold Instructions: until GI issues sorted out triamterene-hydrochlorothiazid 37.5-25 mg tablet 1 tab PO QAM Hold Instructions: until/if restarted by primary care Discharge Orders: Discharge Order (Routine); Ordered 12/29/24 Ordered By: Olive Desai/Other Patient Handouts: Tips for Lactose Intolerance, ED Fainting, Vagal Reaction Admission Data Admit Date/Time: 12/28/24 09:23 Attending Provider: Olive Mckeon Admit Provider: Lambert Cleary Primary Care Provider: Samreen Cortes Other Providers: Lambert Cleary Other Interventions: Discharge Summary Assessment (RN) Last Done: 12/29/24 11:45 Hospital Stay Data Consultations 12/28/24 09:19 ED Decision to Admit Stat Diagnostic Imagining Performed 12/28/24 07:25 CT abd pelvis IV con only Stat CT chest diagnostic w con Stat Pending Results Patient Have Any Pending Studies at Discharge: No Discharge Instructions Given to Patient (Per Discharging Provider) You had a syncopal (passing out) episode which caused you to fall and fracture three ribs. -continue lidocaine patch (available over the counter), acetaminophen [id number], and tramadol as needed to keep rib pain under control -keep using the incentive spirometer regularly for at least 2-3 more days, being up and walking around also helps keep your right lung healthy -your chest x-ray is okay today -seek immediate medical attention if you have worsening shortness of breath or chest pain By your description its highly likely that your syncopal episodes are a vasovagal reaction - these are commonly triggered by GI symptoms like nausea or onset of diarrhea I think you might be partially lactose intolerant -we will hold your triamterene-HCTZ for the time being to prevent dehydration - call your doctor if your BP is running too high - over 150/90, for example -avoid ice cream or other dairy at night -reduce your overall dairy intake, consider changing to lactose free milk and/or lactose free yogurt -flaxseed oil (and fish oil, omega-3 supplements etc) can also cause diarrhea - you may want to hold this until GI issues sorted out -ask your to get up with you if you have to use the restroom in the night -we are setting up an ambulatory heart monitor to check for arrhythmia, which is another possible cause of syncope There were some tiny pulmonary nodules (2-3 mm) on your chest CT - these are low risk but its recommended to have repeat chest CT in 3-6 months -this can be arranged in primary care It was a pleasure seeing you in the hospital, Olive Mckeon MD Total Time Total Time Spent Total Time Spent (In Minutes): I personally spent: 40 minutes today on clinical care activities including: reviewing chart notes and vital signs reviewing labs reviewing studies discussion with career development associate examining and counseling the patient writing orders writing prescriptions, discharge instructions documentation Coding Level of Care Code 37311 INP/OBS DISCH >30 MIN Diagnoses Rib fractures S22.49XA HTN (hypertension) I10
[2024-12-29 10:53] VITALS: BP 132/75; PULSE 90; TEMP 98.1
--- NOTE | 2024-12-31 15:28 | Electrocardiogram Report ---
Test Reason : Blood Pressure : */* mmHG Vent. Rate : 107 BPM Atrial Rate : 107 BPM P-R Int : 116 ms QRS Dur : 82 ms QT Int : 350 ms P-R-T Axes : 61 30 87 degrees QTcB Int : 467 ms Sinus tachycardia with occasional Premature ventricular complexes Nonspecific ST and T wave abnormality Abnormal ECG When compared with ECG of 10-Sep-2023 09:50, Nonspecific T wave abnormality now evident in Lateral leads Confirmed by Hola Hirsch ([id number]) on 12/31/2024 3:28:05 PM Referred By: Confirmed By: Hola Hirsch
== END 2024-12-29 14:23 | disposition home or self-care (01) ==
LOC: ED 07:18 → 4W 07:18 → SUATTDRO 09:23 → 4W 09:53